=== PATIENT | female | born 1940 | race Caucasian/White ===

== ENCOUNTER 2020-01-23 19:23 | Inpatient (IN) | payer MEDICARE, OTHER ==
[~2020-01-23] VITALS: Ht 167.6 cm; Wt 49.0 kg
[2020-01-23 20:19] LABS: BASOPHILS ABSOLUTE AUTO 0.03 K/mm3 (0.00-0.23); BASOPHILS PERCENT AUTO 0 % (0-2); EOSINOPHILS ABSOLUTE AUTO 0.01 K/mm3 (0.00-0.68); EOSINOPHILS PERCENT AUTO 0 % (0-6); Hematocrit 41.8 % (33.0-51.0); Hemoglobin 13.1 g/dL (11.5-16.0); IMMATURE GRAN ABSOLUTE AUTO 0.08 K/mm3 (0.00-0.10); IMMATURE GRAN PERCENT AUTO 0 % (0-1); LYMPHOCYTES ABSOLUTE AUTO 0.53 K/mm3 (0.84-5.20); LYMPHOCYTES PERCENT AUTO 3 % (21-46); MONOCYTES ABSOLUTE AUTO 1.02 K/mm3 (0.16-1.47); MONOCYTES PERCENT AUTO 5 % (4-13); Mean Corpuscular HGB 28.8 pg (26.0-34.0); Mean Corpuscular HGB Conc 31.3 g/dL (31.5-36.5); Mean Corpuscular Volume 92 fL (80-100); Mean Platelet Volume 11.2 fL (9.1-12.4); NEUTROPHILS ABSOLUTE AUTO 18.08 K/mm3 (1.96-9.15); NEUTROPHILS PERCENT AUTO 91 % (41-73); Platelet Count 220 K/mm3 (150-400); RDW Coefficient Variation 13.3 % (11.7-14.2); Red Blood Cell Count 4.55 M/mm3 (3.80-5.20); White Blood Cell Count 19.75 K/mm3 (4.00-11.30)
[2020-01-23 20:29] LABS: Source, Urine Catheter
[2020-01-23 20:36] LABS: Blood, Urine 4+ (Neg); Glucose Qualitative, Urine Neg (Neg); Ketones, Urine 1+ (Neg); Leukocyte Esterase, Urine 3+ (Neg); Nitrite, Urine Pos (Neg); Protein, Urine 3+ (Neg); Urobilinogen, Urine NORM (Normal)
[2020-01-23 20:38] LABS: Bilirubin, Urine 1+ (Neg)
[2020-01-23 20:39] LABS: Appearance, Urine Cloudy (Clear); Color, Urine Yellow (P-Yellow)
[2020-01-23 20:43] LABS: Bacteria Many /hpf; Squamous Epithelial Cells Not Seen /hpf (Few); White Blood Cells, Urine TNTC /hpf (0-5)
[2020-01-23 20:46] LABS: U Amphetamine Screen Not Detected; U Barbituate Screen Not Detected; U Benzodiazapine Screen Not Detected; U Buprenorphine Screen Not Detected; U Cannabinoids Screen Not Detected; U Cocaine Screen Not Detected; U Methadone Screen Not Detected; U Methamphetamine Screen Not Detected; U Opiates Screen Not Detected; U Oxycodone Screen Not Detected; U Phencyclidine Screen Not Detected; U Propoxyphene Screen Not Detected
[2020-01-23 20:48] LABS: Alanine Aminotransfer (ALT/SGP 35 U/L (12-78); Albumin, Blood 3.1 g/dL (3.4-5.0); Albumin/Globulin Ratio 0.7 (0.8-1.8); Alk Phos 94 U/L (50-136); Anion Gap 13 mmol/L (6-16); Aspartate Aminotrans (AST/SGOT 31 U/L (12-37); Bilirubin, Total 0.8 mg/dL (0.1-1.0); Blood Urea Nitrogen 130 mg/dL (8-24); Bun/Creatinine Ratio 30.7 (12.0-20.0); CO2, Blood 18 mmol/L (21-32); Calcium, Blood 9.6 mg/dL (8.5-10.1); Chloride, Blood 119 mmol/L (98-108); Creatinine, Blood 4.24 mg/dL (0.40-1.00); Ethanol (Alcohol), Blood, Med <3 mg/dL; Globulin, Blood 4.5 g/dL (2.2-4.0); Glomerular Filtration Rate 11 (60-); Glucose, Blood 194 mg/dL (70-99); Magnesium, Blood 3.1 mg/dL (1.6-2.4); Potassium, Blood 3.9 mmol/L (3.5-5.5); Sodium, Blood 150 mmol/L (136-145); Total Protein, Blood 7.6 g/dL (6.4-8.2); Troponin I <0.015 ng/mL (0.000-0.040)
[2020-01-23] MEDS ORDERED: DOK100 M2 PO (21:32)
[2020-01-23] MEDS ORDERED: ISOPTO CARPINE15 M2 BOTHEYES (21:33)
[2020-01-23] MEDS ORDERED: PRINIVIL10 MG PO (21:33)
[2020-01-23] MEDS ORDERED: OLANZAPINE PO (21:33)
[2020-01-23] MEDS ORDERED: TRAZ50 PO (21:34)
[2020-01-23] MEDS ORDERED: RISPERIDONE0.5 MG PO (21:34)
--- NOTE | 2020-01-24 02:30 | NUR ---
ADMIT PT ADMITTED FROM ED, BROUGHT OVER VIA GOURNEY. TRANSFERRED WITH SLIDER SHEET. PT ALERT BUT NON-VERBAL AT BASELINE. PT AGITATED WITH NURSING CARE, GRABS AT STAFF AND LINES. BILATERAL WRIST RESTRAINTS PLACED. PACED RYTHM ON THE CAT DRIVER. CENTRAL LINE RIJ. LEVOPHED GTT @ 18, LR @125ML/HR. SC HEPARIN HELD PENDING RESULTS OF CT. HERRING CATHETER PATENT, DRAINING YELLOW, CLOUDY URINE. PT WITH LIQUID BROWN STOOL, SAMPLE COLLECTED AND SENT TO THE LAB. ABRASIONS AND BRUISES T/O BODY, SEE PHOTOS IN CHART. MEPILEX DRESSINGS APPLIED TO HEELS AND HIP.
[2020-01-24 04:31] LABS: BASOPHILS ABSOLUTE AUTO 0.04 K/mm3 (0.00-0.23); BASOPHILS PERCENT AUTO 0 % (0-2); EOSINOPHILS ABSOLUTE AUTO 0.01 K/mm3 (0.00-0.68); EOSINOPHILS PERCENT AUTO 0 % (0-6); Hemoglobin 11.5 g/dL (11.5-16.0); IMMATURE GRAN PERCENT AUTO 1 % (0-1); LYMPHOCYTES ABSOLUTE AUTO 0.58 K/mm3 (0.84-5.20); LYMPHOCYTES PERCENT AUTO 3 % (21-46); MONOCYTES ABSOLUTE AUTO 1.38 K/mm3 (0.16-1.47); MONOCYTES PERCENT AUTO 6 % (4-13); Mean Corpuscular HGB 29.3 pg (26.0-34.0); Mean Corpuscular HGB Conc 31.9 g/dL (31.5-36.5); Mean Corpuscular Volume 92 fL (80-100); Mean Platelet Volume 11.1 fL (9.1-12.4); NEUTROPHILS ABSOLUTE AUTO 19.84 K/mm3 (1.96-9.15); NEUTROPHILS PERCENT AUTO 90 % (41-73); Platelet Count 198 K/mm3 (150-400); RDW Coefficient Variation 13.5 % (11.7-14.2); RDW Standard Deviation 45.6 fL (35.1-46.3); Red Blood Cell Count 3.92 M/mm3 (3.80-5.20); White Blood Cell Count 21.95 K/mm3 (4.00-11.30)
[2020-01-24 04:48] LABS: Bun/Creatinine Ratio 34.9 (12.0-20.0); Calcium, Blood 8.1 mg/dL (8.5-10.1); Creatinine, Blood 3.18 mg/dL (0.40-1.00); Potassium, Blood 3.7 mmol/L (3.5-5.5)
[2020-01-24] MEDS ORDERED: MELATONIN5 M1 PO (05:20)
[2020-01-24 06:10] LABS: Adenovirus F 40/41 Not Detected (NOT DETECT); Astrovirus Not Detected (NOT DETECT); Campylobacter Sp Not Detected (NOT DETECT); Cryptosporidium Not Detected (NOT DETECT); Cyclospora Cayetanensis Not Detected (NOT DETECT); E. Coli O157 Not Detected (NOT DETECT); Entamoeba Histolytica Not Detected (NOT DETECT); Enteroaggregative E. coli-EAEC Not Detected (NOT DETECT); Enteropathogenic E. coli-EPEC Detected (NOT DETECT); Enterotoxigenic E. coli-ETEC Not Detected (NOT DETECT); Giardia Lamblia Not Detected (NOT DETECT); Norovirus GI/GII Not Detected (NOT DETECT); Plesiomonas Shigelloides Not Detected (NOT DETECT); Rotavirus A Not Detected (NOT DETECT); Salmonella Sp Not Detected (NOT DETECT); Sapovirus Not Detected (NOT DETECT); Shiga Toxin-prod E. coli-STEC Not Detected (NOT DETECT); Shigella/Enteroin E. coli-EIEC Not Detected (NOT DETECT); Vibrio Cholerae Not Detected (NOT DETECT); Vibrio Sp Not Detected (NOT DETECT); Yersinia Enterocolitica Not Detected (NOT DETECT)
--- NOTE | 2020-01-24 06:22 | NUR ---
SHIFT SUMMARY NO ACUTE CHANGES TO THIS SHIFT. PT REMAINS ALERT. DOES NOT FOLLOW DIRECTIONS. OCCASIONALLY MOANS. LEVO GTT CONTINUES TO INFUSE. SEE FLOW SHEET FOR TITTRATIONS. PT TOLERATING RA, O2 SATS >90%. GI PANEL SHOWS PT POSITIVE FOR C-DIFF AND EPEC.
--- NOTE | 2020-01-24 08:04 | NUR ---
UPDATED DR. SORIANO ON PATIENT STATUS. INFORMED OF SODIUM OF 154 AND THAT PATIENT POSITIVE FOR C.DIFF AND EPEC. INFORMED THAT PATIENT UNABLE TO FOLLOW COMMANDS AND WILL NEED SPEECH TO EVALUATE TO GET VANCO PO.
--- NOTE | 2020-01-24 08:15 | NUR ---
INITIAL ASSESSMENT PATIENT RESTING QUIETLY IN BED UPON ENTERING ROOM. RECEIVED REPORT THAT PATIENT IS NONVERBAL AT BASELINE. PATIENT RESPONDS TO VERBAL STIMULI AND LOOKS AT NURSE WHEN NURSE IS SPEAKING. PATIENT DOES NOT FOLLOW ANY COMMANDS. PATIENT IS ABLE TO MOVE ALL EXTREMITIES; WEAK. NO SIGNS OF PAIN NOTED AT THIS TIME. PATIENT AFEBRILE. LUNGS CLEAR/ DIMINISHED T/O. SHALLOW BREATHS NOTED. PATIENT SATTING 90% AND GREATER ON RA. PATIENT OCCASIONALLY PACED. PVCS NOTED. HR 80S TO 9-S. BP STABLE ON LEVOPHED AT 9 MCG/ MINUTE. ABDOMEN SOFT WITH HYPERACTIVE BS NOTED. PATIENT HAVING BROWN, LOOSE STOOLS PER NURSING ASSOCIATE. TEMP PROBE HERRING IN PLACE DRAINING DARK YELLOW COLORED URINE WITH SEDIMENT NOTED. SKIN IS DRY AND FRAGILE. BRUISES NOTED T/O BODY. NS INFUSING TKO, D5 1/2 NS INFUSING AT 100 MLS/ HOUR. BED LOW, CALL LIGHT IN REACH. WILL CONTINUE TO MONITOR PATIENT FREQUENTLY THROUGHOUT SHIFT.
--- NOTE | 2020-01-24 12:30 | NUR ---
PATIENT CALM BUT DOES OCCASIONALLY GRAB AGGRESSIVELY AT NURSE'S ARM WHEN PERFORMING NURSING CARE. HR 70S TO 80S. BP REMAINS STABLE ON LEVOPHED AT 9 MCG/ MINUTE. PATIENT ATE A SCANT AMOUNT OF LUNCH UNTIL SHE STARTED TO POCKET ALL OF HER FOOD INTO HER CHEEKS. NO OTHER ACUTE CHANGES TO NOTE ON AT THIS TIME.
--- NOTE | 2020-01-24 16:05 | NUR ---
PATIENT AFEBRILE. NO SIGNS OF PAIN. HR 70S TO 90S. BP STABLE ON LEVOPHED AT 8 MCG/ MINUTE.
--- NOTE | 2020-01-24 16:27 | NUR ---
Initial palliative care consult: Leo is a 79 year old with a history of demnetia, HTN, COPD, CAD, fem-pop bypass currently admitted to the ICU with UTI, c-diff and sepsis. She is currently on levophed and antibiotics. She is non-verbal at baseline. Staff reports that she is combative at times with care. Rodo Eldridge and Nereyda Jazmyn (pt's brother and sister in law) [phone]. Spoke with Eliza, her caregiver, who reports she was able to get a hold of Rodo, pt's brother and POA, today. Eliza states Rodo has the legal paperwork (AD) which names him as POA and supports a DNR status. Eliza requested that Rodo get her the paperwork. Eliza states that once she receives a copy of the paperwork that she will get a copy of it to the hospital. Phone call to Rodo, pt's brother. Nereyda, pt's sister in law, was on the line with us during the conversation. Updated them on current diagnosis and condition and current treatment plan. Rodo verbally confirmed that Leo is a DNR and read her AD which was executed in 2013 to this financial writer. Leo had chosen no long life support and no tube feedings. Explained to them that Leo is currently in the ICU and that pressor medications are being used and are a form of life support. Rodo and Nereyda both agree that they would like to support Leo with medications and current treatment for a couple of days. They are hoping that she will improve. Discussed with them that if Leo's condition declined then there would be a discussion of changing goals of care and considering comfort care. Both Rodo and Nereyda were open to considering comfort care if there was no improvement in the next couple days. POLST form explained and completed over the phone with Rodo and Nereyda. Answered their questions and encouraged them to contact ICU nurse for updates. POLST form placed on chart for MD signature. Spoke with Dr. Kim and placed DNR order. Updated Dr. Kim and nursing on conversation with Rodo and Nereyda. PC to continue to follow for symptom managment and advanced care planning as needed.
--- NOTE | 2020-01-24 18:26 | NUR ---
Initial spiritual care note: Mrs. Hernandez was non-verbal and only stared at me when I spoke to her. She appears frail. I held her hand and spoke in calm tones--assuring her of safety and care. Per chart, she is non-oriental orthodox. No family/friend present. Overhead Line Worker services will remain available.
--- NOTE | 2020-01-24 19:36 | NUR ---
SHIFT SUMMARY PATIENT REMAINED MOSTLY CALM AND NEUTRAL. PATIENT DID GRAB AT NURSE AGGRESSIVELY A COUPLE OF TIMES. PATIENT REMAINED IN RESTRAINTS FOR PROTECTION OF CENTRAL LINE PATIENT GRABBY. PATIENT CONTINUED TO RESPOND TO VERBAL STIMULI BUT NOT FOLLOWING COMMANDS. PATIENT HAS REMAINED AFEBRILE. NO SIGNS OF PAIN THIS SHIFT. PATIENT REMAINED SATTING 90% AND GREATER ON RA. PATIENT REMAINED OCCASIONALLY PACED WITH PVCS. HR 70S TO 90S. LEVOPHED DOWN TO 5 MCG/ MINUTE. PATIENT HAD ONE LOOSE, BROWN BM THIS SHIFT. PATIENT SAW SPEECH THERAPY AND PLACED ON PUREE DIET. PATIENT DID OKAY AT FIRST WITH IT BUT THEN BEGAN TO POCKET IT IN HER CHEEKS. POOR INTAKE THIS SHIFT. PATIENT HAD 555 MLS OF DARK YELLOW URINE WITH SEDIMENT. NO CHANGE TO SKIN. PATIENT REPOSITIONED THROUGHOUT SHIFT. NS TKO, D5W 1/2NS AT 100 MLS/ HOUR. PATIENT GIVEN VANCO, ROCEPHIN AND FLAGYL THIS SHIFT. REPORT GIVEN TO ASSUMING TEMPLATE MAKER NURSE.
--- NOTE | 2020-01-24 21:20 | NUR ---
SHIFT ASSESSMENT ASSUMED CARE FROM ELIGIO RN @ 1900. PT ALERT, RESTING IN BED. NON-VERBAL AT BASELINE. RESPONDS TO NURSE WHILE COMMUNICATING BY OPENING EYES. UNABLE TO FOLLOW COMMANDS. MOVES ALL EXTREMITIES, UNKNOWINGLY SWINGS AT STAFF OCCASIONALLY, IN BILATERAL SOFT WRIST RESTRAINTS TO PROTECT LINES AND CORDS. LS CLEAR BUT DIMINISHED. O2 SATS >90% ON RA. SINUS/ SINUS TACH/ PACED RYTHM ON THE MILK WAGON DRIVER. ABD NON-TENDER. TEMP HERRING PATENT, DRAINING YELLOW, CLOUDY URINE. HX OF LOOSE BOWEL MOVMENTS, C-DIFF +. SKIN IS DRY AND FRAGILE, ECCHYMOSIS/ BRUISING SCATTERED OVER BODY, PHOTOS IN CHART.
[2020-01-25 03:59] LABS: BASOPHILS ABSOLUTE AUTO 0.03 K/mm3 (0.00-0.23); BASOPHILS PERCENT AUTO 0 % (0-2); EOSINOPHILS ABSOLUTE AUTO 0.08 K/mm3 (0.00-0.68); EOSINOPHILS PERCENT AUTO 1 % (0-6); Hematocrit 32.5 % (33.0-51.0); Hemoglobin 10.2 g/dL (11.5-16.0); IMMATURE GRAN ABSOLUTE AUTO 0.14 K/mm3 (0.00-0.10); IMMATURE GRAN PERCENT AUTO 1 % (0-1); LYMPHOCYTES ABSOLUTE AUTO 0.74 K/mm3 (0.84-5.20); LYMPHOCYTES PERCENT AUTO 6 % (21-46); MONOCYTES ABSOLUTE AUTO 0.98 K/mm3 (0.16-1.47); MONOCYTES PERCENT AUTO 8 % (4-13); Mean Corpuscular HGB 28.7 pg (26.0-34.0); Mean Corpuscular HGB Conc 31.4 g/dL (31.5-36.5); Mean Corpuscular Volume 92 fL (80-100); Mean Platelet Volume 10.8 fL (9.1-12.4); NEUTROPHILS ABSOLUTE AUTO 10.93 K/mm3 (1.96-9.15); NEUTROPHILS PERCENT AUTO 85 % (41-73); Platelet Count 151 K/mm3 (150-400); RDW Coefficient Variation 13.7 % (11.7-14.2); RDW Standard Deviation 45.8 fL (35.1-46.3); Red Blood Cell Count 3.55 M/mm3 (3.80-5.20)
[2020-01-25 04:17] LABS: Magnesium, Blood 1.8 mg/dL (1.6-2.4)
[2020-01-25 04:20] LABS: Albumin, Blood 2.2 g/dL (3.4-5.0); Albumin/Globulin Ratio 0.7 (0.8-1.8); Bilirubin, Total 0.4 mg/dL (0.1-1.0); Bun/Creatinine Ratio 40.4 (12.0-20.0); Calcium, Blood 7.9 mg/dL (8.5-10.1); Creatinine, Blood 1.66 mg/dL (0.40-1.00); Globulin, Blood 3.3 g/dL (2.2-4.0); Potassium, Blood 3.6 mmol/L (3.5-5.5)
[2020-01-25 04:23] LABS: Total Protein, Blood 5.5 g/dL (6.4-8.2)
--- NOTE | 2020-01-25 06:05 | NUR ---
SHIFT SUMMARY PT ALERT, ABLE TO SLEEP INTERMITTENTLY T/O THE NIGHT AND MORNING. O2 SATS >90% ON RA. NO CHANGES IN RHYTHM. MAP REMAINED >60 AFTER LEVOPHED BEING PLACED ON STANDBY AT 2058. HERRING CATH PATENT, DRAINING YELLOW URINE. NO BOWEL MOVEMENT. SOFT WRIST RESTRAINTS REMAIN IN PLACE TO PROTECT LINES AND CORDS.
--- NOTE | 2020-01-25 08:17 | NUR ---
ASSUMED CARE: RECEIVED REPORT FROM NOC RN. PT APPEARS TO BE SLEEPING UPON ENTERING THE ROOM BUT OPENS HER R EYE UPON THE LIGHT BEING TURNED ON AND STAFF TALKING. PT DOES NOT RESPOND VERBALLY TO THIS RN. RESTRAINTS ARE NOTED ON BILAT WRISTS, TIGHTENED THE RESTRAINT ON THE R HAND D/T IT BEING TO LOOSE. WILL CONTINUE TO MONIOTOR AND ASSESS FURTHER.
--- NOTE | 2020-01-25 13:00 | NUR ---
TUBE FEEDING STARTED: JEVITY 1.5 STARTED AT 15ML/HR /C A FLUSH OF 30ML OF WATER Q4HR
--- NOTE | 2020-01-25 19:15 | NUR ---
ASSUMED CARE RECEIVED REPORT FROM SHUBHAM FLOWER. ASSUMED CARE OF PT. RESTING COMFORTABLY AT THIS TIME, NO S/S ACUTE DISTRESS NOTED. RESPS EVEN AND UNLABORED. DENIES NEEDS AT THIS TIME. CALL LIGHT, POSSESSIONS IN REACH, BED IN LOWEST POSITION WITH ALARMS ON, SIDERAILS UP X3. WILL CONTINUE TO MONITOR AND PROVIDE CARE NEEDED.
--- NOTE | 2020-01-26 04:06 | NUR ---
SHIFT SUMMARY PT ASLEEP AT THIS TIME, NO ACUTE EVENTS NOTED T/O NIGHT. REMAINS NON-VERBAL, COOPERATIVE WITH CARES. VS REVIEWED, NO ACUTE CHANGES NOTED. REPOSITIONED TOLERATED T/O NIGHT. CONTINUES TO HAVE LOOSE BMS. HERRING CATHETER REMAINS IN PLACE, PATENT. IVF ONGOING. PT DENIES NEEDS. CALL LIGHT, POSSESSIONS IN REACH. BED IN LOWEST POSITION WITH ALARMS ON. WILL CONTINUE TO MONITOR AND PROVIDE CARE NEEDED UNTIL DAY RN ASSUMES CARE.
--- NOTE | 2020-01-26 10:02 | NUR ---
Attempted to visit with Leo this morning. She is sleeping with resp even and appears to be comfortable at this time. Left her undisturbed at this time. Nursing reports she has been cooperative with care this morning and was able to take am PO meds. PC will continue to follow and update family prn.
--- NOTE | 2020-01-26 19:15 | NUR ---
ASSUMED CARE RECEIVED REPORT FROM SHUBHAM VAIL. ASSUMED CARE OF PT. ASLEEP AT THIS TIME, AROUSES TO VERBAL STIMULI, OPENS EYES AND LOOKING AT STAFF. NO S/S ACUTE DISTRESS NOTED, RESPS EVEN AND UNLABORED. DENIES NEEDS AT THIS TIME. CALL LIGHT, POSSESSIONS IN REACH, BED IN LOWEST POSITION WITH ALARMS ON. WILL CONTINUE TO MONITOR.
--- NOTE | 2020-01-27 06:23 | NUR ---
SHIFT SUMMARY PT HAS HAD AN UNEVENTFUL NIGHT. NO ACUTE CHANGES IN CONDITION NOTED, NO LOOSE STOOLS T/O NIGHT. PT REPOSITIONED TOLERATED. HERRING CATHETER PATENT, DRAINING AUDREY YELLOW URINE, TUBING FREE OF KINKS. PT OCCASIONALLY RESISTANT TO CARES, PUSHING STAFF AWAY. AM VITALS REVIEWED, PT REFUSED BP; OTHER VS STABLE. DENIES NEEDS AT THIS TIME. CALL LIGHT, POSSESSIONS IN REACH, BED IN LOWEST POSITION WITH ALARMS ON. WILL CONTINUE TO MONITOR UNTIL DAY RN ASSUMES CARE.
[2020-01-27 09:26] LABS: Anion Gap 8 mmol/L (6-16); Blood Urea Nitrogen 20 mg/dL (8-24); Bun/Creatinine Ratio 22.3 (12.0-20.0); CO2, Blood 21 mmol/L (21-32); Calcium, Blood 7.5 mg/dL (8.5-10.1); Chloride, Blood 117 mmol/L (98-108); Glomerular Filtration Rate >60 (60-); Glucose, Blood 106 mg/dL (70-99); Sodium, Blood 146 mmol/L (136-145)
--- NOTE | 2020-01-27 19:15 | NUR ---
ASSUMED CARE RECEIVED REPORT FROM SHUBHAM VAIL. ASSUMED CARE OF PT. RESTING COMFORTABLY AT THIS TIME, NO S/S ACUTE DISTRESS NOTED. OPENS EYES SPONTANEOUSLY TO VERBAL STIMULI, REMAINS MOSTLY NON-VERBAL. DENIES NEED. CALL LIGHT, POSSESSIONS IN REACH. BED IN LOWEST POSITION WITH ALARMS ON. WILL CONTINUE TO MONITOR.
--- NOTE | 2020-01-27 23:53 | NUR ---
SPOKE TO DR. ZULETA REGARDING PT'S UNREPORTED PAIN. ORDERS RECEIVED. CONTINUE TO MONITOR.
--- NOTE | 2020-01-28 04:10 | NUR ---
SHIFT SUMMARY PT ASLEEP AT THIS TIME, INCREASINGLY ALERT EARLIER IN SHIFT. PT ABLE TO VOCALIZE "YES" OR "NO" AT TIMES. NO S/S ACUTE DISTRESS NOTED AT THIS TIME. REPOSITIONED TOLERATED. MEDICATED FOR UNREPORTED PAIN X1 PER EMAR, PT APPEARS COMFORTABLE AT THIS TIME. AM LABS PENDING. DENIES NEEDS AT THIS TIME. CALL LIGHT, POSSESSIONS IN REACH, BED IN LOW POSITION WITH ALARM ON. WILL CONTINUE TO MONITOR AND PROVIDE CARE NEEDED UNTIL DAY RN ASSUMES CARE.
[2020-01-28 05:27] LABS: Hematocrit 32.4 % (33.0-51.0); Hemoglobin 10.2 g/dL (11.5-16.0); Mean Corpuscular HGB 28.8 pg (26.0-34.0); Mean Corpuscular HGB Conc 31.5 g/dL (31.5-36.5); Mean Corpuscular Volume 92 fL (80-100); Mean Platelet Volume 10.9 fL (9.1-12.4); Platelet Count 188 K/mm3 (150-400); RDW Coefficient Variation 13.8 % (11.7-14.2); RDW Standard Deviation 46.5 fL (35.1-46.3); Red Blood Cell Count 3.54 M/mm3 (3.80-5.20); White Blood Cell Count 7.23 K/mm3 (4.00-11.30)
[2020-01-28 05:50] LABS: Anion Gap 9 mmol/L (6-16); Blood Urea Nitrogen 16 mg/dL (8-24); CO2, Blood 19 mmol/L (21-32); Calcium, Blood 7.4 mg/dL (8.5-10.1); Chloride, Blood 121 mmol/L (98-108); Creatinine, Blood 0.84 mg/dL (0.40-1.00); Glomerular Filtration Rate >60 (60-); Glucose, Blood 80 mg/dL (70-99); Potassium, Blood 3.3 mmol/L (3.5-5.5); Sodium, Blood 149 mmol/L (136-145)
--- NOTE | 2020-01-28 12:45 | NUR ---
pt resting no grimace or thightness no dyapnea. Called her caregiver to review her needs. Discussed hospice with caregiver at physicians request. States that her nurse parctitioner is coming late today to assess her. She states that pt has been there for six weeks. She was needing more care but the adjustment has been difficult. Caregiver has a hospice certified house and feels hospice care would be best for this patient. She will discuss it with her primary care provider today.
[2020-01-28] MEDS ORDERED: MIRALAX17 GM PO (14:36)
[2020-01-28] MEDS ORDERED: VISBIOME PROBIOTIC PO (14:39)
--- NOTE | 2020-01-28 15:08 | NUR ---
updated physician and nursing on outpatient hospice consult.
--- NOTE | 2020-01-28 16:24 | NUR ---
DISCHARGE PT DISCHARGE TO HOME, TRANSPORTED VIA WC WITH CAREGIVER. INSTRUCTED TO FOLLOW UP WITH PCP WITHIN A WEEK AND TAKE MEDS PRESCRIBED; DR CHERY TALKED WITH THE CAREGIVER AT BEDSIDE; FOLLOW UP WITH HOSPICE. IV EWELINA. MANUELS.
== END 2020-01-28 16:05 | disposition home or self-care (01) | DRG 871 ==
LOC: ER 19:23 → ERHOLD 21:59 → MEDS 21:59 → ICUE 21:59 → MEDS 01-25 18:25 → ENPENDDIS 01-28 14:31 → MEDS 01-28 16:05
PROVIDERS: Emergency Medicine; Internal Medicine; ADMIT Family Medicine
PROC: 05HM33Z Insertion of Infusion Device into Right Internal Jugular Vein, Percutaneous Approach (ICD-10-PCS; principal; 2020-01-23)
PROC: B543ZZA Ultrasonography of Right Jugular Veins, Guidance (ICD-10-PCS; 2020-01-23)
PROC: 3E043XZ Introduction of Vasopressor into Central Vein, Percutaneous Approach (ICD-10-PCS; 2020-01-23)
DX: A41.51 Sepsis due to Escherichia coli [E. coli] (principal); R65.21 Severe sepsis with septic shock; G92 Toxic encephalopathy; J96.01 Acute respiratory failure with hypoxia; Z68.1 Body mass index [BMI] 19.9 or less, adult; R64 Cachexia; Z51.5 Encounter for palliative care; Z20.828 Contact with and (suspected) exposure to other viral communicable diseases; N17.9 Acute kidney failure, unspecified; N39.0 Urinary tract infection, site not specified; E87.0 Hyperosmolality and hypernatremia; T76.11XA Adult physical abuse, suspected, initial encounter; A04.72 Enterocolitis due to Clostridium difficile, not specified as recurrent; E86.0 Dehydration; I25.10 Atherosclerotic heart disease of native coronary artery without angina pectoris; I10 Essential (primary) hypertension; E87.6 Hypokalemia; F03.90 Unspecified dementia, unspecified severity, without behavioral disturbance, psychotic disturbance, mood disturbance, and anxiety; S80.12XA Contusion of left lower leg, initial encounter; S80.11XA Contusion of right lower leg, initial encounter; S40.012A Contusion of left shoulder, initial encounter; S40.011A Contusion of right shoulder, initial encounter; I69.320 Aphasia following cerebral infarction
CPT/HCPCS: 0097U; 36415; 36556; 51702; 70450; 71045; 80048; 80053; 81001; 82140; 83605; 83735; 83880; 84295; 84484; 85025; 85027; 87040; 87077; 87086; 87186; 87324; 92526; 92610; 93005; 93010; 96361-59; 96365-59; 96375-59; 99291-25; A9270; C1751; G0008; G0480; J0696; J1644; J7030; J7042; J7050; J7060; J7070; J7120; Q2038; U0003